=== PATIENT | female | born 1945 | race Caucasian/White ===

== ENCOUNTER 2022-12-17 13:55 | Emergency (ER) | payer OTHER ==
[2022-12-17] MEDS ORDERED: HYDROCODONE/APAP 10/325 TAB ONE (14:22)
--- NOTE | 2022-12-17 15:03 | ER ---
Nurse's Notes [facility] Name: Ruthie Walker Age: 77 yrs Sex: Female : 1945 Arrival Date: 12/17/2022 Time: 14:03 Bed DIS1 Private MD: Diagnosis: Low back pain Presentation: 12/17 14:11 Chief complaint: EMS states: Toned out for chronic back pain, ran out of Smock RX a jl7 week ago and doesn't have an appointment until January 07, 2023. Coronavirus screen: At this time, the client does not indicate any symptoms associated with coronavirus-19. Ebola Screen: No symptoms or risks identified at this time. Initial Sepsis Screen: Does the patient meet any 2 criteria? No. Patient's initial sepsis screen is negative. Does the patient have a suspected source of infection? No. Patient's initial sepsis screen is negative. Risk Assessment: Do you want to hurt yourself or someone else? Patient reports no desire to harm self or others. Onset of symptoms is unknown. 14:11 Method Of Arrival: Ambulatory [facility] 14:11 Acuity: HOLLIE 4 jl7 Triage Assessment: 14:13 General: Appears in no apparent distress. uncomfortable, Behavior is calm, cooperative, jl7 appropriate for age. Pain: Complains of pain in back. Neuro: Level of Consciousness is awake, alert, obeys commands, Oriented to person, place, time, situation. Cardiovascular: Patient's skin is warm and dry. Respiratory: Airway is patent Respiratory effort is even, unlabored, Respiratory pattern is regular, symmetrical. Derm: Skin is pink, warm \T\ dry. Historical: - Allergies: 14:13 Sulfa (Sulfonamide Antibiotics); jl7 14:13 PENICILLINS; jl7 - Home Meds: 14:13 Smock 10-325 mg Oral tab [Active]; lisinopril 40 mg Oral tab [Active]; jl7 - PMHx: 14:13 Hypertensive disorder; Chronic back pain; jl7 - Immunization history:: Client reports receiving the 2nd dose of the Covid vaccine. - Social history:: Smoking status: Patient reports the use of cigarette tobacco products, smokes two packs cigarettes per day. Screenin:16 [facility] ED Fall Risk Assessment (Adult) History of falling in the last 3 months, kr3 including since admission No falls in past 3 months (0 pts) Confusion or Disorientation No (0 pts) Intoxicated or Sedated No (0 pts) Impaired Gait No (0 pts) Mobility Assist Device Used Yes (1 pt) Altered Elimination No (0 pt) Score/Fall Risk Level 0 - 2 = Low Risk. Abuse screen: Denies threats or abuse. Nutritional screening: No deficits noted. Tuberculosis screening: No symptoms or risk factors identified. Vital Signs: 14:11 BP 176 / 94; Pulse 84; Resp 17; Temp 97.9; Pulse Ox 95% on R/A; Weight 44.45 kg; Height jl7 5 ft. 2 in. (157.48 cm); Pain 10/10; 15:16 BP 143 / 113; Pulse 85; Resp 18; Pulse Ox 98% ; kr3 14:11 Body Mass Index 17.92 (44.45 kg, 157.48 cm) jl7 ED Course: 14:03 Patient arrived in ED. jl7 14:06 Ian Carrillo DO is Attending Physician. ms3 14:11 Oscar Beck, OVIDIO is Primary Nurse. jl7 14:13 Triage completed. jl7 14:13 Arm band placed on right wrist. jl7 14:15 Bed in low position. Call light in reach. Side rails up X 1. kr3 15:16 No provider procedures requiring assistance completed. Patient did not have IV access kr3 during this emergency room visit. Administered Medications: 14:28 Drug: Smock (HYDROcodone-acetaminophen) 10 mg-325 mg 1 tabs Route: PO; jl7 15:15 Follow up: Response: No adverse reaction; RASS: Alert and Calm (0) kr3 Medication: 15:17 VIS not applicable for this client. kr3 Outcome: 15:02 Discharge ordered by . ms3 15:15 Patient left the ED. kr3 15:16 Discharged to home ambulatory. kr3 15:16 Condition: stable 15:16 Discharge instructions given to patient, family, Instructed on discharge instructions, follow up and referral plans. Demonstrated understanding of instructions, follow-up care. Signatures: Oscar Beck RN RN jl7 Ian Carrillo DO DO ms3 Vee Silva RN RN kr3
--- NOTE | 2022-12-17 15:03 | EDPHYS ---
Physician Documentation [facility] Jan[place] Name: Ruthie Walker Age: 77 yrs Sex: Female : 1945 Arrival Date: 12/17/2022 Time: 14:03 Bed DIS1 Private MD: ED Physician Ian Carrillo HPI: 12/17 15:03 This 77 yrs old Female presents to ER via Ambulatory with complaints of back pain. ms3 15:03 77-year-old female with past medical history of hypertension, chronic back pain ms3 presents via [facility] for back pain that radiates to her bilateral lower extremities. Patient states she has 6 fractures in her back. Patient states the cervical fractures were fixed with surgery. Patient states her discomfort is a 10/10. Patient states she is typically on [place] 08/11/2025 and has not been able to see her pain management doctor in [place] and is currently out of her [place] until Thursday. Patient denies numbness, weakness, urinary or bowel incontinence, urinary retention, fevers, chills.. Historical: - Allergies: 14:13 Sulfa (Sulfonamide Antibiotics); jl7 14:13 PENICILLINS; jl7 - Home Meds: 14:13 Northfield 10-325 mg Oral tab [Active]; lisinopril 40 mg Oral tab [Active]; jl7 - PMHx: 14:13 Hypertensive disorder; Chronic back pain; jl7 - Immunization history:: Client reports receiving the 2nd dose of the Covid vaccine. - Social history:: Smoking status: Patient reports the use of cigarette tobacco products, smokes two packs cigarettes per day. ROS: 15:03 Constitutional: Negative for fever, and chills. Cardiovascular: Negative for chest ms3 pain, and palpitations. Respiratory: Negative for shortness of breath, cough, wheezing, and pleuritic chest pain, Abdomen/GI: Negative for abdominal pain, nausea, vomiting, diarrhea, and constipation, MS/Extremity: Negative for injury and deformity, Skin: Negative for injury, rash, and discoloration. 15:03 Back: Positive for Back pain. 15:03 All other systems are negative. Exam: 15:03 Constitutional: This is a well developed, well nourished patient who is awake, alert, ms3 and in no acute distress. Head/Face: Normocephalic, atraumatic. Neck: Trachea midline, no cervical lymphadenopathy. Supple, full range of motion without nuchal rigidity, or vertebral point tenderness. No Meningismus. Chest/axilla: Normal chest wall appearance and motion. Nontender with no deformity. Cardiovascular: Regular rate and rhythm with a normal S1 and S2. No gallops, murmurs, or rubs. Normal PMI, no JVD. No pulse deficits. Respiratory: Lungs have equal breath sounds bilaterally, clear to auscultation and percussion. No rales, rhonchi or wheezes noted. No increased work of breathing, no retractions or nasal flaring. Abdomen/GI: Soft, non-tender, with normal bowel sounds. No distension or tympany. No guarding or rebound. No evidence of tenderness throughout. 15:03 Back: pain, that is moderate, ROM is normal, normal spinal alignment noted, vertebral tenderness, is not appreciated, muscle spasm, is appreciated in the left low back, left mid back, right mid back and right low back. Vital Signs: 14:11 BP 176 / 94; Pulse 84; Resp 17; Temp 97.9; Pulse Ox 95% on R/A; Weight 44.45 kg; Height jl7 5 ft. 2 in. (157.48 cm); Pain 10/10; 15:16 BP 143 / 113; Pulse 85; Resp 18; Pulse Ox 98% ; kr3 14:11 Body Mass Index 17.92 (44.45 kg, 157.48 cm) jl7 MDM: 14:06 Patient medically screened. ms3 15:03 Differential diagnosis: vertebral fracture, Muscle spasm, degenerative disc disease. ms3 Data reviewed: vital signs, nurses notes, and as a result, I will discharge patient. Test considered but Not performed: X-ray: Patient states this is her typical back pain and she is out of her [place].. Historians other than the Patient: EMS: [facility]. Care significantly affected by the following chronic conditions: Hypertension. 15:08 Counseling: I had a detailed discussion with the patient and/or guardian regarding: the ms3 historical points, exam findings, and any diagnostic results supporting the discharge/admit diagnosis, the need for outpatient follow up, to return to the emergency department if symptoms worsen or persist or if there are any questions or concerns that arise at home. ED course: While patient is in the emergency department patient's caregiver Marcella called. She states patient has been doing methamphetamines and is receiving them from her daughter. Patient recently saw a pain management physician and her Northfield was decreased to 3 five 325 mg tablets per day. Discussed PDMP with patient showing patient received a 7-day supply of Northfield 7.5/325's on December 15, 2022. Patient to follow-up with her pain management physician for additional pain medications. Patient understands and agrees with plan. All questions were answered. Patient stating she would like to be discharged from the emergency department at this time. Return precautions discussed include numbness, weakness, incontinence, fevers, chills, worsening symptoms, or any other concerns.. Administered Medications: 14:28 Drug: [place] (HYDROcodone-acetaminophen) 10 mg-325 mg 1 tabs Route: PO; jl7 15:15 Follow up: Response: No adverse reaction; RASS: Alert and Calm (0) kr3 Disposition Summary: 12/17/22 15:02 Discharge Ordered Location: Home ms3 Condition: Stable ms3 Diagnosis - Low back pain ms3 Discharge Instructions: - Discharge Summary Sheet ms3 - Acute Back Pain, Adult ms3 Forms: - Medication Reconciliation Form ms3 - Thank You Letter ms3 - Antibiotic Education ms3 - Prescription Opioid Use ms3 Signatures: Oscar Beck RN RN jl7 Ian Carrillo DO DO ms3 Vee Silva RN kr3 Corrections: (The following items were deleted from the chart) 15:10 15:03 77-year-old female with past medical history of hypertension, chronic back pain ms3 presents via [facility] for back pain that radiates to her bilateral lower extremities. Patient states she has 6 fractures in her back. Patient states the cervical fractures were fixed with surgery. Patient states her discomfort is a /10. Patient states she is typically on [place] 08/11/2025 and has not been able to see her pain management doctor in [place] and is currently out of her [place] until Thursday.. ms3
[2022-12-17 15:20] VITALS: BP 176/94; TEMP 97.9; O2SAT 95
== END 2022-12-17 15:15 | disposition home or self-care (01) ==
LOC: ER 13:55
DX: M54.50 Low back pain, unspecified (principal); G89.29 Other chronic pain; I10 Essential (primary) hypertension; F17.210 Nicotine dependence, cigarettes, uncomplicated; Z88.0 Allergy status to penicillin; Z88.2 Allergy status to sulfonamides